=== PATIENT | male | born 1965 | race Caucasian/White ===

== ENCOUNTER → 2021-02-09 | Day surgery (SDC) | payer OTHER ==
[~2021-02-09] MED LIST: AMBIEN10 MG PO; ATIVAN0.5 MG PO; BENICAR *OUT OF20 MG PO; CARAFATE1 GM PO; COREG 6.25MG6.25 MG PO; CRESTOR5 MG PO; DEPO-TESTO200 MG/1 M IJ; LEXAPRO20 MG PO; PRILOSEC20 MG PO; PROCARDIA XL60 MG PO; VALSARTAN80 MG PO; WELLBUTRIN XL300 MG PO
== END | disposition home or self-care (01) ==
LOC: FAS 08:21
DX: K29.50 Unspecified chronic gastritis without bleeding (principal); K57.30 Diverticulosis of large intestine without perforation or abscess without bleeding; D64.9 Anemia, unspecified; I10 Essential (primary) hypertension; E78.5 Hyperlipidemia, unspecified; F17.219 Nicotine dependence, cigarettes, with unspecified nicotine-induced disorders; Z83.3 Family history of diabetes mellitus
CPT/HCPCS: J2250; J2704; J7120